=== PATIENT | female | born 1975 | race Caucasian/White ===

== ENCOUNTER → 2019-09-22 | Outpatient (CLI) | payer OTHER ==
--- NOTE | 2019-09-22 10:51 | RAD ---
EXAM: Lumbar spine, 3 views. HISTORY: Pain. COMPARISON: None. FINDINGS: 3 views of the lumbar spine are obtained. There is mild lumbar levoscoliosis centered at L4. There is degenerative endplate remodeling with disc space narrowing, osteophytosis and facet arthropathy at L4-L5. No fracture is seen. IMPRESSION: 1. Degenerative change at L4-L5. 2. Mild levoscoliosis centered at L4-L5. Electronically signed by: Madiha Araya MD (09/22/2019 10:49 AM) [email or web address]
== END | disposition home or self-care (01) ==
LOC: RAD 09:47
DX: M47.816 Spondylosis without myelopathy or radiculopathy, lumbar region (principal); M51.36 Other intervertebral disc degeneration, lumbar region; M48.061 Spinal stenosis, lumbar region without neurogenic claudication; M41.86 Other forms of scoliosis, lumbar region; M12.88 Other specific arthropathies, not elsewhere classified, other specified site
CPT/HCPCS: 72100